=== PATIENT | female | born 1985 | race Caucasian/White ===

== ENCOUNTER → 2017-08-12 | Emergency (ER) | payer OTHER ==
[~2017-08-12] VITALS: Ht 162.6 cm; Wt 61.7 kg
[~2017-08-12] MED LIST: KETO10TA2 PO; KETOCONAZOLE120 ML TOP; ORPHENADRINE C100 MG PO
== END | disposition home or self-care (01) ==
LOC: ER 20:22
DX: M62.830 Muscle spasm of back (principal); B35.4 Tinea corporis

== ENCOUNTER 2018-09-06 11:24 | Emergency (ER) | payer OTHER ==
[~2018-09-06] VITALS: Ht 162.6 cm; Wt 63.5 kg
[2018-09-06] MEDS ORDERED: [UNRECOGNIZED DRUG - OTHER] (11:47)
== END 2018-09-06 14:58 | disposition home or self-care (01) ==
LOC: ER 11:24
DX: M54.89 Other dorsalgia (principal); M62.830 Muscle spasm of back; M54.2 Cervicalgia

== ENCOUNTER 2019-01-09 21:10 | Emergency (ER) | payer OTHER ==
[~2019-01-09] VITALS: Ht 162.6 cm; Wt 63.5 kg
[~2019-01-09 21:10] MED LIST changes: +[UNRECOGNIZED DRUG - OTHER]
== END 2019-01-09 22:54 | disposition home or self-care (01) ==
LOC: ER 21:10
DX: M54.89 Other dorsalgia (principal)